=== PATIENT | male | born 1960 | race African-American/Black ===

== ENCOUNTER 2024-06-06 13:11 | Emergency (ER) | payer MEDICAID ==
[~2024-06-06] VITALS: Ht 180.3 cm; Wt 117.0 kg
[2024-06-06 13:16] VITALS: TEMP 98.1; O2SAT 98
[2024-06-06] MEDS: SODIUM CHLORIDE 0.9% 1,000 ML IV ONE (13:51)
[2024-06-06 14:06] LABS: HEMATOCRIT. 42.6 % (42.0-52.0); HEMOGLOBIN. 13.7 g/dL (14.0-18.0); MEAN CORPUSCULAR HGB CONC 32.1 g/dL (31.0-37.0); MEAN CORPUSCULAR VOLUME 93.3 fL (80.0-94.0); MEAN PLATELET VOLUME 10.3 fl (7.4-10.4); PLATELET 111 x1000/uL (130-400); RED BLOOD CELL COUNT 4.56 mill/uL (4.7-6.1); RED CELL DISTRIBUTION WIDTH 16.7 % (11.6-14.6); WHITE BLOOD COUNT 4.6 x1000/uL (4.5-11.0)
[2024-06-06 14:08] LABS: DIFFERENTIAL COMMENT 1
[2024-06-06 14:15] LABS: CHLORIDE 103 mEq/L (98-107); POTASSIUM 3.8 mEq/L (3.5-5.1); SODIUM 138 mEq/L (136-145)
[2024-06-06 14:16] LABS: CALCIUM 8.5 mg/dL (8.7-10.4); CARBON DIOXIDE 30 mEq/L (21-32)
[2024-06-06 14:21] LABS: CREATININE 2.3 mg/dL (0.6-1.3); GLUCOSE 102 mg/dL (70-105); UREA NITROGEN BLOOD 18 mg/dL (9-23)
[2024-06-06 14:22] LABS: TROPONIN I HIGH SENSITIVITY 33 ng/L (3.0-53)
[2024-06-06 14:57] LABS: ANISOCYTOSIS 1+; PLATELET ESTIMATE DECREASED
[2024-06-06 16:54] LABS: TROPONIN I HIGH SENSITIVITY 33 ng/L (3.0-53)
[2024-06-06 19:20] VITALS: BP 119/89; PULSE 98; RESP 14
== END 2024-06-06 21:00 | disposition home or self-care (01) ==
LOC: ER 13:11
DX: R53.1 Weakness (principal); R55 Syncope and collapse; R42 Dizziness and giddiness; I11.0 Hypertensive heart disease with heart failure; I50.9 Heart failure, unspecified; R60.0 Localized edema
CPT/HCPCS: 80048; 83880; 83605; 85025; 84484; 36415; 93005; 96360; 96361; 99285; J7030; Z7610 ×2; 71045